=== PATIENT | female | born 1975 | race Caucasian/White ===

== ENCOUNTER 2018-06-14 12:35 | Inpatient (IN) | payer OTHER, SELFPAY ==
[2018-06-14 13:04] VITALS: BMI 34.4
[2018-06-14] MEDS: Lactated Ringers 1,000 ML 50 ML IV (13:10)
[2018-06-14 13:26] LABS: Hematocrit 41.3 % (37-47); Hemoglobin 13.7 g/dl (12.0-15.0); Mean Corp Hgb Conc 33.2 g/gl (32-36); Mean Corpuscular Hgb 30.4 pg (27.0-32.0); Mean Corpuscular Volume 91.6 fL (81-99); Mean Platelet Vol. 11.9 fl (6.2-12.0); Platelet Count 144 K/mm3 (150-450); RBC Distribution Width CV 14.3 % (11.6-14.6); RBC Distribution Width SD 46.2 fl (35.1-43.9); Red Blood Count 4.51 M/mm3 (4.2-5.4); White Blood Count 8.8 K/mm3 (4.4-11.0)
[2018-06-14 13:28] LABS: Scan Indicated on CBC? Y/N NO
[2018-06-14] MEDS: Magnesium Sulfate 20 GM/500 ML BAG IV ×2 (13:40→22:37)
[2018-06-14 13:57] LABS: Protein, Urine (Random) 98.3 mg/dL (<11.9); Protein:Creat Ratio 4772 mg/g CRE (0-200)
[2018-06-14] MEDS: Labetalol 200 MG Tablet PO ×2 (14:26→22:37)
[2018-06-14 14:28] LABS: International Normalized Ratio 0.9; Prothrombin Time (Protime)PT. 11.7 SECONDS (11.7-14.9)
[2018-06-14 14:29] LABS: Partial Thromboplast Time 37.1 Seconds (24.1-36.2)
[2018-06-14 14:40] LABS: AST(SGOT) 61 U/L (15-37); Alanine Aminotransfer ALT/SGPT 111 U/L (13-56); Creatinine, Serum 0.56 mg/dL (0.55-1.02); EST Glomerular Filtration Rate 126 mL/min (>60); Est Glom Filt Rate - Afr Amer 153 mL/min (>60); Estimated Creatinine Clearance 127.26 ml/min; Uric Acid 5.4 mg/dL (2.6-6.0)
[2018-06-14] MEDS: miSOPROStol 25 MCG TABLET PO ×3 (14:50→22:38)
[2018-06-14 16:38] LABS: Group B Strep DNA By PCR Negative (Negative); Internal Control PASS; Probe Check PASS; Specimen Processing Control PASS
--- NOTE | 2018-06-14 17:34 | PCM.HP.OB ---
- Problem List (1) Pre-eclampsia, severe Status: Acute (2) 34 weeks gestation of Status: Acute (3) Discoid lupus Status: Acute (4) AMA (advanced maternal age) primigravida 35+ Status: Acute History Date of Admission: 06/14/18 Final NIA: 07/25/18 Gestational age: 34 Weeks and 1 Days History of this : This is a 43 year-old, G 2, P 0010, at 34 weeks gestational age who presents for admission for pre-eclampsia with severe features. She had newly elevated blood pressures and proteinuria in the office yesterday and pre-e labs were ordered. She was given 1 dose of BMZ yesterday. She came to the office today for a second dose of BMZ and BP check. Her BP's were persistently severe in the office. Labs from yesterday: Plt's noted to be 108, and AST/ALT elevated at 70/109. She is asymptomatic. Sent to L&D from the office due to persistently severe range BP's, new thrombocytopenia, and new elevated LFT's. 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 Allergies No Known Allergies Allergy (Verified 06/14/18 13:04) Home Medications: Home Medications Aspirin, Baby 81 mg PO DAILY 06/14/18 Hydroxychloroquine Sulfate [Plaquenil] 200 mg PO QHS 06/14/18 Smoking Status: Never smoker Number of Fetus(es): 1 Heart Tracin/mod marnie/no accels/no decels TOCO Analysis: quiet History Past Pregnancies: Past Pregnancies Delivery Date Name GA/Weeks Outcome Route Weight Infant Gender Labor Length Anesthesia Delivery Location Provider FOB 1st trimester MAB Labs: EFW 1534g (40%) at 30 wks 1 hr GTT elevated at 175, 3 hr GTT nml with 1/4 elevated Syphilis NR, RNI, Hep B neg, HIV NR, O positive, antibody screen neg, NIPT neg, UDS neg, GC/CT neg Baseline DS-DNA 30, anti-SSA and SSB neg, C3 18, C3 141 Expected Infant Delivery Method: Spontaneous Vaginal Review of Systems Constitutional: Denies: Malaise Eyes: Denies: Blurred vision HEENT: Denies: Head Aches Cardiovascular: Denies: Chest Pain Respiratory: Denies: Shortness of Breath Gastrointestinal: Denies: Abdominal Pain, Nausea, Vomiting Neurological: Denies: Blurred vision, Double vision Physical Exam General: Alert, No apparent distress HEENT: Atraumatic Lungs: - - No increased resp effort Abdomen: Soft, Non Tender, Gravid Extremities:: No edema, Deep tendon reflexes - Patellar reflexes 2+ Neurological: Neuro grossly intact MANAGEMENT TRAINEE: Normal external genitalia Estimated gestational size: Appropriate for gestational size Presentation: Cephalic Cervix Dilation (cm): 0 Station: -3 Effacement (%): 40 Assessment/Plan All Active Problems Pre-eclampsia, severe (Acute) 34 weeks gestation of (Acute) Discoid lupus (Acute) AMA (advanced maternal age) primigravida 35+ (Acute) This is a 43 year-old, G 2, P 0010, at 34 weeks gestational age who presents with pre-eclampsia with severe features. H/o AMA and discoid lupus. Persistent severe range BP's in the office today, as well as on admission to L&D requiring multiple doses of IV labetalol. No pre-e symptoms currently. New thrombocytopenia, elevated LFT's, and proteinuria. Pt does have a h/o discoid lupus with no prior renal involvement, complement levels and DS-DNA levels sent but will not result for a few days per the lab. S/p BMZ 06/13, 06/14 for lung maturity. Discussed patient and plan of care with Dr. Mariscal ([facility]), as well as Dr. Alegria (who will be physician honey processor tomorrow). [facility] recommends delivery at this time for pre-eclampsia with severe features. Bedside scan confirms vertex presentation. Mag 4g bolus, 2g/hr gtt started for seizure prophylaxis. Labetalol 200mg PO BID started per protocal. GBS collected and negative. Pre-e labs q 6 hrs. Epidural catheter to be placed while able, given plt's of 108 yesterday. Cytotec for cervical ripening started. Will attempt viramontes placement tonight. Discussed plan of care in detail with patient and FOB and all questions answered. Reviewed risk of section if pre-e signs/symptoms worsen, and given unfavorable cervix. Pt understands baby will go to special care nursery, and there is a possibility that baby is transferred to [place] for further care. She desires to deliver in [place] and understands that baby could be transferred, and that she will be to be closely monitored at [facility].
--- NOTE | 2018-06-14 17:40 | HP.PCM_ITS ---
- Problem List (1) Pre-eclampsia, severe Status: Acute (2) 34 weeks gestation of Status: Acute (3) Discoid lupus Status: Acute (4) AMA (advanced maternal age) primigravida 35+ Status: Acute History Date of Admission: 06/14/18 Final NIA: 07/25/18 Gestational age: 34 Weeks and 1 Days History of this : This is a 43 year-old, G 2, P 0010, at 34 weeks gestational age who presents for admission for pre-eclampsia with severe features. She had newly elevated blood pressures and proteinuria in the office yesterday and pre-e labs were ordered. She was given 1 dose of BMZ yesterday. She came to the office today for a second dose of BMZ and BP check. Her BP's were persistently severe in the office. Labs from yesterday: Plt's noted to be 108, and AST/ALT elevated at 70/109. She is asymptomatic. Sent to L&D from the office due to persistently severe range BP's, new thrombocytopenia, and new elevated LFT's. 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 Allergies No Known Allergies Allergy (Verified 06/14/18 13:04) Home Medications: Home Medications Aspirin, Baby 81 mg PO DAILY 06/14/18 Hydroxychloroquine Sulfate [Plaquenil] 200 mg PO QHS 06/14/18 Smoking Status: Never smoker Number of Fetus(es): 1 Heart Tracin/mod marnie/no accels/no decels TOCO Analysis: quiet History Past Pregnancies: Past Pregnancies Delivery Date Name GA/Weeks Outcome Route Weight Infant Gender Labor Length Anesthesia Delivery Location Provider FOB 1st trimester MAB Labs: EFW 1534g (40%) at 30 wks 1 hr GTT elevated at 175, 3 hr GTT nml with 1/4 elevated Syphilis NR, RNI, Hep B neg, HIV NR, O positive, antibody screen neg, NIPT neg, UDS neg, GC/CT neg Baseline DS-DNA 30, anti-SSA and SSB neg, C3 18, C3 141 Expected Infant Delivery Method: Spontaneous Vaginal Review of Systems Constitutional: Denies: Malaise Eyes: Denies: Blurred vision HEENT: Denies: Head Aches Cardiovascular: Denies: Chest Pain Respiratory: Denies: Shortness of Breath Gastrointestinal: Denies: Abdominal Pain, Nausea, Vomiting Neurological: Denies: Blurred vision, Double vision Physical Exam General: Alert, No apparent distress HEENT: Atraumatic Lungs: - - No increased resp effort Abdomen: Soft, Non Tender, Gravid Extremities:: No edema, Deep tendon reflexes - Patellar reflexes 2+ Neurological: Neuro grossly intact PERIPHERAL VASCULAR TECH: Normal external genitalia Estimated gestational size: Appropriate for gestational size Presentation: Cephalic Cervix Dilation (cm): 0 Station: -3 Effacement (%): 40 Assessment/Plan All Active Problems Pre-eclampsia, severe (Acute) 34 weeks gestation of (Acute) Discoid lupus (Acute) AMA (advanced maternal age) primigravida 35+ (Acute) This is a 43 year-old, G 2, P 0010, at 34 weeks gestational age who presents with pre-eclampsia with severe features. H/o AMA and discoid lupus. Persistent severe range BP's in the office today, as well as on admission to L&D requiring multiple doses of IV labetalol. No pre-e symptoms currently. New thrombocytopenia, elevated LFT's, and proteinuria. Pt does have a h/o discoid lupus with no prior renal involvement, complement levels and DS-DNA levels sent but will not result for a few days per the lab. S/p BMZ 06/13, 06/14 for lung maturity. Discussed patient and plan of care with Dr. Mariscal ([facility]), as well as Dr. Alegria (who will be physician concrete sculptor tomorrow). [facility] recommends delivery at this time for pre-eclampsia with severe features. Bedside scan confirms vertex presentation. Mag 4g bolus, 2g/hr gtt started for seizure prophylaxis. Labetalol 200mg PO BID started per protocal. GBS collected and negative. Pre-e labs q 6 hrs. Epidural catheter to be placed while able, given plt's of 108 yesterday. Cytotec for cervical ripening started. Will attempt viramontes placement tonight. Discussed plan of care in detail with patient and FOB and all questions answered. Reviewed risk of section if pre-e signs/symptoms worsen, and given unfavorable cervix. Pt understands baby will go to special care nursery, and there is a possibility that baby is transferred to [place] for further care. She desires to deliver in [place] and understands that baby could be transferred, and that she will be to be closely monitored at [facility].
[2018-06-14] MEDS: Hydroxychloroquine 200 MG Tablet PO (18:53)
[2018-06-14 19:47] LABS: Hematocrit 36.6 % (37-47); Hemoglobin 12.1 g/dl (12.0-15.0); Mean Corp Hgb Conc 33.1 g/gl (32-36); Mean Corpuscular Hgb 30.5 pg (27.0-32.0); Mean Corpuscular Volume 92.2 fL (81-99); Mean Platelet Vol. 11.3 fl (6.2-12.0); Platelet Count 140 K/mm3 (150-450); RBC Distribution Width CV 14.3 % (11.6-14.6); RBC Distribution Width SD 47.3 fl (35.1-43.9); Red Blood Count 3.97 M/mm3 (4.2-5.4)
[2018-06-14] MEDS: 0.9% Normal Saline 100 ML IV.SOLN. INTRA-UTER (19:50)
--- NOTE | 2018-06-14 19:53 | PCM.PN.BLA ---
Progress Note Cvx 1/t/h, vertex. Intracervical viramontes placed in usual fashion and filled with 40cc saline. Pt tolerated well. FHT 150/mod marnie/no accels/no decels. [place] quiet. Epidural catheter was placed. Pt not feeling cramping or ctx's. BP's normal. Repeat pre-e labs were just drawn. Mag gtt at 2 g/hr. Will continue with oral cytotec while viramontes catheter is in placed for 4 doses. Once viramontes is out, will d/c cytotec and start pitocin 4 hours after last cytotec dose. If labs stable, will d/c q 6 hrs draw and repeat them in the AM.
[2018-06-14 19:55] LABS: Scan Indicated on CBC? Y/N NO
--- NOTE | 2018-06-14 19:57 | PN_ITS ---
Progress Note Cvx 1/t/h, vertex. Intracervical viramontes placed in usual fashion and filled with 40cc saline. Pt tolerated well. FHT 150/mod marnie/no accels/no decels. [place] quiet. Epidural catheter was placed. Pt not feeling cramping or ctx's. BP's normal. Repeat pre-e labs were just drawn. Mag gtt at 2 g/hr. Will continue with oral cytotec while viramontes catheter is in placed for 4 doses. Once viramontes is out, will d/c cytotec and start pitocin 4 hours after last cytotec dose. If labs stable, will d/c q 6 hrs draw and repeat them in the AM.
[2018-06-14 19:59] LABS: International Normalized Ratio 0.9; Prothrombin Time (Protime)PT. 12.2 SECONDS (11.7-14.9)
[2018-06-14 20:00] LABS: Partial Thromboplast Time 37.1 Seconds (24.1-36.2)
[2018-06-14 20:05] LABS: AST(SGOT) 51 U/L (15-37); Creatinine, Serum 0.61 mg/dL (0.55-1.02); EST Glomerular Filtration Rate 115 mL/min (>60); Est Glom Filt Rate - Afr Amer 139 mL/min (>60); Estimated Creatinine Clearance 116.83 ml/min; Uric Acid 5.6 mg/dL (2.6-6.0)
[2018-06-14 20:06] LABS: Alanine Aminotransfer ALT/SGPT 95 U/L (13-56)
[2018-06-15] MEDS: Oxytocin 30 units/NS 500 ml 30 UNITS/500 ML IV.SOLN IV (02:17)
[2018-06-15] MEDS: Lactated Ringers 1,000 ML 50 ML IV (02:38)
[2018-06-15 06:17] LABS: Absolute Lymphocyte Count 1.31 X10^3/ul (0.83-4.51); Absolute Neutrophil Count 9.3 X10^3/uL (2.0-7.7); Basophil# 0.01 X10^3/uL; Basophil% 0.1 % (0-1); Eosinophil# 0.01 X10^3/uL; Eosinophils% 0.1 % (0-5); Hematocrit 37.7 % (37-47); Hemoglobin 12.3 g/dl (12.0-15.0); Lymphocyte # 1.31 X10^3/ul (4.0); Lymphocyte % 11.4 % (19-41); Mean Corp Hgb Conc 32.6 g/gl (32-36); Mean Corpuscular Hgb 30.2 pg (27.0-32.0); Mean Corpuscular Volume 92.6 fL (81-99); Mean Platelet Vol. 11.6 fl (6.2-12.0); Monocyte# 0.82 X10^3/uL; Monocyte% 7.1 % (0-10); Neutrophil # 9.25 X10^3/uL (2.7-7.7); Neutrophil % 80.7 % (47-70); Platelet Count 139 K/mm3 (150-450); RBC Distribution Width CV 14.4 % (11.6-14.6); Red Blood Count 4.07 M/mm3 (4.2-5.4); White Blood Count 11.5 K/mm3 (4.4-11.0)
[2018-06-15 06:19] LABS: POSITIVE COUNT NO; POSITIVE DIFFERENTIAL NO; POSITIVE MORPHOLOGY NO
[2018-06-15 06:37] LABS: ALB/GLOB Ratio 0.6 RATIO (0.9-2.4); AST(SGOT) 41 U/L (15-37); Alanine Aminotransfer ALT/SGPT 87 U/L (13-56); Albumin, Serum 2.5 g/dL (3.2-5.0); Alkaline Phosphatase 119 U/L (45-117); Anion Gap 13 (5-15); BUN 11 mg/dL (7-18); BUN/Creat Ratio 19.5 RATIO (10-20); Calcium,Total 7.2 mg/dL (8.5-10.1); Chloride 109 mmol/L (98-107); Creatinine, Serum 0.56 mg/dL (0.55-1.02); EST Glomerular Filtration Rate 125 mL/min (>60); Est Glom Filt Rate - Afr Amer 152 mL/min (>60); Estimated Creatinine Clearance 127.26 ml/min; Globulin 3.9 g/dL (2.2-4.2); Glucose 89 mg/dL (74-106); Potassium 3.7 mmol/L (3.5-5.1); Protein, Total 6.4 g/dL (6.4-8.2); Sodium Level 140 mmol/L (136-145)
--- NOTE | 2018-06-15 07:19 | PCM.PN.BLA ---
Progress Note At bedside to check on pt. She is doing well, she is starting to feel contractions. She is tearful and nervous. BP's mild range. Labs stable this morning. UOP has been adequate. Magg gtt at 2 g/hr. Pit at 10 mu/min. Ahumada was out around 1-2 am and cvx 3.5 cm. Continue to titrate pit.
--- NOTE | 2018-06-15 07:23 | NURSING ---
Epidural placed d/t low platelets.
[2018-06-15] MEDS: Labetalol 200 MG Tablet PO ×2 (09:34→22:56)
[2018-06-15] MEDS: Magnesium Sulfate 20 GM/500 ML BAG IV ×2 (09:35→20:20)
[2018-06-15] MEDS: fentaNYL-bupivacaine (epidural) 100 ML BAG EPIDURAL (14:38)
--- NOTE | 2018-06-15 15:13 | PCM.PN.BLA ---
Progress Note This am approx 830 am /-2, AROM w/ moderate clear fluid, IUPC placed to assist w/ titration of pitocin. Denied LOPES or visual changes or epigastric pain. BP stable Now, denies LOPES, visual changes or epigastric pain. CTxs were getting more intense. Comfortalble now w/ epidural. PItocin was off due to late decelerations. Now FHTs normal baseline, moderate variability, some late/early decelerations. Ctxs q 4-5 min. Cont. pitocin per protocol. Cervix 2. Cont. magnesium sulfate prophylaxis. BPs adequately controlled.
[2018-06-15] MEDS: Oxytocin 30 units/NS 500 ml 30 UNITS/500 ML IV.SOLN 334 UNITS IV (19:01)
[2018-06-15] MEDS: Oxytocin 30 units/NS 500 ml 30 UNITS/500 ML IV.SOLN 167 UNITS IV (19:31)
[2018-06-15 19:40] VITALS: BP 136/73; PULSE 82; RESP 18; TEMP 37.2; O2SAT 96
[2018-06-15] MEDS: Hydroxychloroquine 200 MG Tablet PO (19:42)
--- NOTE | 2018-06-15 20:05 | OP.PCM_ITS ---
Vaginal Delivery Maternal Presentation: Medically Indicated Induction Method of Induction: Pitocin, Ahumada Bulb, Amniotomy, Cytotec Medical Reason for Induction: Preeclampsia, eclampsia - with severe features Amniotic Membrane Rupture Type: Artificial Amniotic Fluid Description: Clear Final NIA: 07/25/18 Gestational age: 34 Weeks and 2 Days Date of Procedure: 06/15/18 Pre-Operative Diagnosis: 34-week intrauterine , advanced maternal age primigravida, labor Post-Operative Diagnosis: same Surgery/ Procedure Performed: Spontaneous Vaginal Delivery Type of Anesthesia: Epidural Description of Procedure: A vigorous male was delivered ESDRAS over a second-degree perineal laceration. The remainder the infant was delivered with maternal pushing and gentle traction only in less than 15 seconds. The Pitocin infusion was initiat ed for active management of the third stage. The cord was clamped and cut after 1 minute. The infant was attended to by the waiting nursing staff. The placenta was delivered spontaneously and intact. The cervix and vagina were intact. The second-degree perineal laceration was repaired with 3-0 Vicryl suture in a running standard fashion. Sponge and needle counts were correct. A vaginal sweep was completed by me. Presentation: ESDRAS Placental Delivery Description: Spontaneous Placenta Disposition: Sent with transport team Cord Vessel Description: 3 Vessels Cord Gases drawn per routine: ABG, VBG Cord Entanglement: None Drain: Ahumada to straight drain Estimated Blood Loss: 300 Infant A gender: Male (1 minute): 7 (5 minute): 8 Episiotomy Description: None Laceration: 2nd degree - perineal Medications given after delivery: IV Pitocin Complications: None
[2018-06-15 20:40] VITALS: BP 140/72; PULSE 76; RESP 18; TEMP 37; O2SAT 96
[2018-06-15 20:44] LABS: Hematocrit 35.4 % (37-47); Hemoglobin 11.8 g/dl (12.0-15.0); Mean Corp Hgb Conc 33.3 g/gl (32-36); Mean Corpuscular Hgb 31.1 pg (27.0-32.0); Mean Corpuscular Volume 93.2 fL (81-99); Mean Platelet Vol. 11.4 fl (6.2-12.0); Platelet Count 139 K/mm3 (150-450); RBC Distribution Width CV 14.5 % (11.6-14.6); White Blood Count 17.1 K/mm3 (4.4-11.0)
[2018-06-15 20:45] LABS: Scan Indicated on CBC? Y/N NO
--- NOTE | 2018-06-15 21:19 | NURSING ---
This RN instructed pt on pumping with double pump. Pt asking about a pump for home.
[2018-06-15 21:45] VITALS: BP 132/75; PULSE 77; RESP 18; TEMP 37.3; O2SAT 97
[2018-06-15 22:45] VITALS: BP 155/81; PULSE 79; RESP 18; TEMP 36.8; O2SAT 94
[2018-06-15 23:50] VITALS: BP 142/84; PULSE 75; RESP 16; TEMP 37.3; O2SAT 95
[2018-06-16] VITALS (21 sets, daily range): BP systolic 109–143; BP diastolic 65–85; PULSE 70–87; RESP 16–18; TEMP 36.3–37.2; O2SAT 93–100
[2018-06-16] MEDS: Acetaminophen 500 MG Tablet 1000 MG PO (02:00)
[2018-06-16 06:34] LABS: Hemoglobin 10.8 g/dl (12.0-15.0); Mean Corp Hgb Conc 32.7 g/gl (32-36); Mean Corpuscular Hgb 30.3 pg (27.0-32.0); Mean Corpuscular Volume 92.7 fL (81-99); Mean Platelet Vol. 10.7 fl (6.2-12.0); Platelet Count 137 K/mm3 (150-450); RBC Distribution Width CV 14.4 % (11.6-14.6); RBC Distribution Width SD 46.9 fl (35.1-43.9); Red Blood Count 3.56 M/mm3 (4.2-5.4); White Blood Count 13.5 K/mm3 (4.4-11.0)
[2018-06-16 06:38] LABS: Scan Indicated on CBC? Y/N NO
[2018-06-16 07:12] LABS: ALB/GLOB Ratio 0.6 RATIO (0.9-2.4); AST(SGOT) 31 U/L (15-37); Alanine Aminotransfer ALT/SGPT 58 U/L (13-56); Albumin, Serum 2.1 g/dL (3.2-5.0); Alkaline Phosphatase 109 U/L (45-117); Anion Gap 10 (5-15); BUN 10 mg/dL (7-18); BUN/Creat Ratio 18.9 RATIO (10-20); Calcium,Total 6.3 mg/dL (8.5-10.1); Chloride 107 mmol/L (98-107); Creatinine, Serum 0.53 mg/dL (0.55-1.02); EST Glomerular Filtration Rate 135 mL/min (>60); Est Glom Filt Rate - Afr Amer 163 mL/min (>60); Estimated Creatinine Clearance 134.47 ml/min; Globulin 3.6 g/dL (2.2-4.2); Glucose 85 mg/dL (74-106); Potassium 3.9 mmol/L (3.5-5.1); Protein, Total 5.7 g/dL (6.4-8.2); Sodium Level 138 mmol/L (136-145)
[2018-06-16] MEDS: Magnesium Sulfate 20 GM/500 ML BAG IV (07:17)
--- NOTE | 2018-06-16 08:53 | PCM.PN.OB ---
Patient Problems: Active and Suspected Problems Pre-eclampsia, severe (Acute) 34 weeks gestation of (Acute) Discoid lupus (Acute) AMA (advanced maternal age) primigravida 35+ (Acute) Subjective: pain well contgrolled, average lochia. NO N/V. Mild LOPES, took tylenol. No visual changes, CP or SOB - Physical Exam General: Alert, Cooperative, No apparent distress Abdomen: Soft, Non-Distended, Tender - mildly, fundus firm Extremities: Edema - 2+, - - 2 beats clonus, 2+ DTRS Vital Signs Temp Pulse Resp BP Pulse Ox 98.8 F 73 16 139/85 H 95 06/16/18 08:00 06/16/18 08:00 06/16/18 08:00 06/16/18 08:00 06/16/18 08:00 Oxygen Delivery Method Room Air Weight: 99.79 kg Body Mass Index (BMI) 34.4 Intake and Output for Last 24 Hours 06/14/18 06/15/18 06/16/18 23:59 23:59 23:59 Intake Total 1789 / 1789 956 / 956 Output Total 1066 / 1066 1370 / 1370 Balance 723 / 723 -414 / -414 Laboratory Tests Past 24 Hrs 06/15/18 06/16/18 06/16/18 20:20 06:25 06:25 WBC 17.1 H 13.5 H RBC 3.80 L 3.56 L Hgb 11.8 L 10.8 L Hct 35.4 L 33.0 L MCV 93.2 92.7 MCH 31.1 30.3 MCHC 33.3 32.7 RDW 14.5 14.4 RDW Differential 47.0 H 46.9 H Plt Count 139 L 137 L MPV 11.4 10.7 Sodium 138 Potassium 3.9 Chloride 107 Carbon Dioxide 21.0 Anion Gap 10 BUN 10 Creatinine 0.53 L Estim Creat Clear Calc 134.47 Est GFR (MDRD) Af Amer 163 Est GFR (MDRD) Non-Af 135 BUN/Creatinine Ratio 18.9 Glucose 85 Calcium 6.3 L* Total Bilirubin 0.60 AST 31 ALT 58 H Alkaline Phosphatase 109 Total Protein 5.7 L Albumin 2.1 L Globulin 3.6 Albumin/Globulin Ratio 0.6 L Medical Necessity - Tobacco Use Smoking Status: Never smoker Assessment/Plan All Active Problems Pre-eclampsia, severe (Acute) 34 weeks gestation of (Acute) Discoid lupus (Acute) AMA (advanced maternal age) primigravida 35+ (Acute) PPD#1 doing well bp stable labs stable/improving. regular diet ok cont. mag until [address] Ford assuming care
[2018-06-16] MEDS: Labetalol 200 MG Tablet PO ×2 (10:33→22:24)
[2018-06-16 12:41] LABS: Complement C3 126 mg/dL (82-167)
[2018-06-16] MEDS: Lactated Ringers 1,000 ML 15 ML IV (17:48)
[2018-06-16] MEDS: 0.9% Saline Lock 10 ML Syringe IV (18:57)
[2018-06-16] MEDS: Hydroxychloroquine 200 MG Tablet PO (18:57)
[2018-06-17 02:19] VITALS: BP 123/76; PULSE 72; RESP 16; TEMP 36.6
[2018-06-17 07:33] VITALS: BP 134/85; PULSE 86; RESP 16; TEMP 37.2; O2SAT 96
[2018-06-17] MEDS: 0.9% Saline Lock 10 ML Syringe IV (07:41)
--- NOTE | 2018-06-17 08:27 | PCM.PN.OB ---
Patient Problems: Active and Suspected Problems Pre-eclampsia, severe (Acute) 34 weeks gestation of (Acute) Discoid lupus (Acute) AMA (advanced maternal age) primigravida 35+ (Acute) Subjective: Denies complaints - Physical Exam General: Alert, Oriented x3 Abdomen: Soft, Non Tender, Non-Distended - ff mid & below umb Extremities: No Calf Tenderness, Edema - equal and 1+ Vital Signs Temp Pulse Resp BP Pulse Ox 99.0 F 86 16 134/85 H 96 06/17/18 07:33 06/17/18 07:33 06/17/18 07:33 06/17/18 07:33 06/17/18 07:33 Oxygen Delivery Method Room Air Weight: 220 lb Body Mass Index (BMI) 34.4 Intake and Output for Last 24 Hours 06/15/18 06/16/18 06/17/18 23:59 23:59 23:59 Intake Total 1789 / 1789 2510 / 2510 Output Total 1066 / 1066 3960 / 3960 400 / 400 Balance 723 / 723 -1450 / -1450 -400 / -400 Microbiology Past 72 Hours 06/14/18 Unknown Group B Streptococcus Culture - Final Genital vaginal Group B Beta Streptococcus is not isolated. Laboratory Tests Past 24 Hrs 06/14/18 19:37 Complement C3 126 Complement C4 12 L Medical Necessity - Tobacco Use Smoking Status: Never smoker Assessment/Plan All Active Problems Pre-eclampsia, severe (Acute) 34 weeks gestation of (Acute) Discoid lupus (Acute) AMA (advanced maternal age) primigravida 35+ (Acute) PPD#2 PreE -s/p Mg. Labs improved yesterday. BP's normal on labetalol. Plan for d/c tonight if BP's remain normal.
--- NOTE | 2018-06-17 08:28 | PCM.DCVAG ---
Discharge Diet: No Restrictions Discharge Activity: May Shower May resume sexual activity in: 4-6 weeks Weight Bearing Status: Weight bearing as tolerated Call your doctor if your incision/area has: Continuous Slow Oozing, Sudden Increased Bleeding, Increased Pain/ Swelling, Increased Redness, Foul Smelling Discharge, Swelling at the incision site Additional Instructions: If you experience any of the following, contact your healthcare provider. Bleeding that soaks a pad every hour for 2 hours Fever 100.4 or higher Unrelieved incision or abdominal pain Swelling, redness, discharge or bleeding from your incision or episiotomy site Your incision begins to separate Problems urinating (including inability to urinate or burning while urinating). Visual changes Severe headache Flu-like symptoms Pain or redness in one of both of your breasts Pain, warmth, tenderness or swelling in your legs, especially the calf area Frequent nausea and vomiting Symptoms of depression or anxiety If you experience any of the following, call 911 or go to the nearest Emergency Room. Chest pain Problems breathing Seizure activity Partial or complete paralysis of a body part, slurred speech, weakness or drooping of the face, or a sudden inability to walk or hold your balance Please call office for a blood pressure check in 1-2 weeks Allergies/Adverse Reactions: Allergies No Known Allergies Allergy (Verified 06/14/18 13:04) Medications to take at Discharge Hydroxychloroquine Sulfate [Plaquenil] 200 mg PO QHS 06/14/18 Hydroxychloroquine [Plaquenil] 200 mg PO 1900 tablet 06/17/18 Labetalol [Trandate (Beta Adeel)] 200 mg PO BID #60 tablet 06/17/18 The following prescriptions were given: Labetalol [Trandate (Beta Adeel)] 200 mg PO BID #60 tablet Primary Care Physician: Care Physician,No Primary [Primary Care Provider] - Test Results: Test results from this visit will be discussed in further detail at your follow-up appointment, if applicable.
--- NOTE | 2018-06-17 08:32 | DCINST_ITS ---
Discharge Diet: No Restrictions Discharge Activity: May Shower May resume sexual activity in: 4-6 weeks Weight Bearing Status: Weight bearing as tolerated Call your doctor if your incision/area has: Continuous Slow Oozing, Sudden Increased Bleeding, Increased Pain/ Swelling, Increased Redness, Foul Smelling Discharge, Swelling at the incision site Additional Instructions: If you experience any of the following, contact your healthcare provider. * Bleeding that soaks a pad every hour for 2 hours * Fever 100.4 or higher * Unrelieved incision or abdominal pain * Swelling, redness, discharge or bleeding from your incision or episiotomy site * Your incision begins to separate * Problems urinating (including inability to urinate or burning while urinating). * Visual changes * Severe headache * Flu-like symptoms * Pain or redness in one of both of your breasts * Pain, warmth, tenderness or swelling in your legs, especially the calf area * Frequent nausea and vomiting * Symptoms of depression or anxiety If you experience any of the following, call 911 or go to the nearest Emergency Room. * Chest pain * Problems breathing * Seizure activity * Partial or complete paralysis of a body part, slurred speech, weakness or drooping of the face, or a sudden inability to walk or hold your balance Please call office for a blood pressure check in 1-2 weeks Allergies/Adverse Reactions: Allergies No Known Allergies Allergy (Verified 06/14/18 13:04) Medications to take at Discharge Hydroxychloroquine Sulfate [Plaquenil] 200 mg PO QHS 06/14/18 Hydroxychloroquine [Plaquenil] 200 mg PO 1900 tablet 06/17/18 Labetalol [Trandate (Beta Adeel)] 200 mg PO BID #60 tablet 06/17/18 The following prescriptions were given: Labetalol [Trandate (Beta Adeel)] 200 mg PO BID #60 tablet Primary Care Physician: Care Physician,No Primary [Primary Care Provider] - Test Results: Test results from this visit will be discussed in further detail at your follow- up appointment, if applicable.
--- NOTE | 2018-06-17 08:52 | NURSING ---
Monitor patient until after 1900 to ensure blood pressures stay WNL, and then transfer to hot status per Dr. Ford.
[2018-06-17] MEDS: Labetalol 200 MG Tablet PO (09:47)
[2018-06-17 13:11] VITALS: BP 120/76; PULSE 76; RESP 16; TEMP 36.8; O2SAT 96
[2018-06-17 16:27] VITALS: BP 132/76; RESP 16; TEMP 37
[2018-06-17 18:42] VITALS: BP 135/67
--- NOTE | 2018-06-17 18:45 | NURSING ---
Dr. Ford notified of patient's vital signs during this shift. She is ok with patient being transferred to hotel status at this time.
[2018-06-17] MEDS: Hydroxychloroquine 200 MG Tablet PO (18:55)
[2018-06-17 18:57] VITALS: BP 135/76; PULSE 88; RESP 16; TEMP 37.2
[2018-06-19 11:47] LABS: Anti-dsDNA Ab 2 IU/mL (0-9)
== END 2018-06-17 19:00 | disposition home or self-care (01) | DRG 805 ==
PROVIDERS: Obstetrics & Gynecology; Admitting Provider Obstetrics & Gynecology; Visit Provider Obstetrics & Gynecology
DX: O14.13 Severe pre-eclampsia, third trimester (principal); O60.14X0 Preterm labor third trimester with preterm delivery third trimester, not applicable or unspecified; Z37.0 Single live birth; O99.113 Other diseases of the blood and blood-forming organs and certain disorders involving the immune mechanism complicating pregnancy, third trimester; D69.6 Thrombocytopenia, unspecified; O99.353 Diseases of the nervous system complicating pregnancy, third trimester; L93.0 Discoid lupus erythematosus; O99.89 Other specified diseases and conditions complicating pregnancy, childbirth and the puerperium; R94.5 Abnormal results of liver function studies; O70.1 Second degree perineal laceration during delivery; Z3A.34 34 weeks gestation of pregnancy
CPT/HCPCS: 59025; 59050; 80053; 82565; 82570; 84156; 84450; 84460; 84550; 85025; 85027; 85610; 85730; 86160; 86225; 86850; 86900; 87081; 87653; 99218; J7120; 90686; A4216; G0378